=== PATIENT | male | born 1960 | race Caucasian/White ===

== ENCOUNTER → 2020-11-06 | Outpatient (CLI) | payer MEDICARE, OTHER | LOC: KOH-I 12:29 | DX: M79.604 Pain in right leg (principal); M54.2 Cervicalgia; M48.02 Spinal stenosis, cervical region; M25.78 Osteophyte, vertebrae; M47.812 Spondylosis without myelopathy or radiculopathy, cervical region | CPT/HCPCS: 72050; 93971 ==

== ENCOUNTER → 2020-12-18 | Outpatient (CLI) | payer MEDICARE, OTHER | LOC: KOH-I 10:27 → EMI 11:15 → KOH-I 11:30 | DX: M25.571 Pain in right ankle and joints of right foot (principal); R93.6 Abnormal findings on diagnostic imaging of limbs | CPT/HCPCS: 73718 ==

== ENCOUNTER → 2022-03-14 | Outpatient (CLI) | payer MEDICARE | LOC: HEART 5 09:30 | DX: R01.1 Cardiac murmur, unspecified (principal) | CPT/HCPCS: 93306 ==